=== PATIENT | female | born 1935 | race Caucasian/White ===

== ENCOUNTER 2016-10-16 07:03 | Emergency (ER) | payer MEDICARE, OTHER ==
[2016-10-16 07:21] VITALS: BP 152/75
--- NOTE | 2016-10-16 07:38 | UC ---
Hand/Wrist HPI - HPI Summary HPI Summary: 81 yo female with right wrist injury that occurred last PM getting into bed She had no preceding symptoms of MONET/dizziness/CP/palpitations or weakness No syncope or near syncope She had a fall in the bedroom one week ago as well (when she got up to go to the bathroom) Hx of Breast Ca - History Of Current Complaint Chief Complaint: UCUpperExtremity Stated Complaint: WRIST INJURY Time Seen by Provider: 10/16/16 07:09 Hx Obtained From: Patient Onset/Duration: Sudden Onset Severity Initially: Severe Severity Currently: Severe Pain Intensity: 10 Pain Scale Used: 0-10 Numeric Character Of Pain: Aching Aggravating Factor(s): Movement Alleviating: Rest, Ice Associated Signs And Symptoms: Positive: Swelling Related History: Dominant Hand Right - Allergies/Home Medications Allergies/Adverse Reactions: Allergies Allergy/AdvReac Type Severity Reaction Status Date / Time No Known Allergies Allergy Verified 10/16/16 07:14 Home Medications: Home Medications Anastrozole [Arimidex] 1 mg PO DAILY 10/16/16 [History Confirmed 10/16/16] PMH/Surg Hx/FS Hx/Imm Hx Previously Healthy: Yes Endocrine History: Dyslipidemia Cancer History: Breast Cancer - Surgical History Surgical History: Yes Surgery Procedure, Year, and Place: 1978 HYSTERECTOMY , BILATERAL [place]- [facility]OPHORECTOMY, [facility] 1986 [place] [facility] [place] [facility] [place] FROM [place]RO[place], 1965 - Family History Known Family History: Positive: Cardiac Disease - mom with AF, Other - mom breast Ca - Social History Alcohol Use: Daily Alcohol Amount: 1 PER DAY Substance Use Type: None Smoking Status (MU): Never Smoked Tobacco Have You Smoked in the Last Year: No - Immunization History Most Recent Influenza Vaccination: fall 2014 Review of Systems Constitutional: Negative Skin: Negative Eyes: Negative ENT: Negative Respiratory: Negative Cardiovascular: Negative Gastrointestinal: Negative Genitourinary: Negative Motor: Negative Neurovascular: Negative Musculoskeletal: Arthralgia Neurological: Negative Psychological: Negative All Other Systems Reviewed And Are Negative: Yes Physical Exam Triage Information Reviewed: Yes Appearance: Well-Appearing, No Pain Distress Vital Signs: Initial Vital Signs Temp 97.9 F 10/16/16 07:14 Pulse 82 10/16/16 07:14 Resp 16 10/16/16 07:14 BP 152/75 10/16/16 07:14 Pulse Ox 100 10/16/16 07:14 Vital Signs Reviewed: Yes Eyes: Positive: Conjunctiva Clear ENT: Positive: Hearing grossly normal. Negative: Nasal congestion, Nasal drainage, Trismus, Muffled/hoarse voice Neck: Positive: Supple, Nontender, No Lymphadenopathy Respiratory: Positive: Lungs clear, Normal breath sounds, No respiratory distress, No accessory muscle use Cardiovascular: Positive: RRR, No Murmur Musculoskeletal: Positive: Other: - obvious deformity right wrist, right wrist and shoulder okay Neurological: Positive: Alert Psychological Exam: Normal Skin Exam: Normal Procedures - Splinting Location: right wrist Hand-Made Type: orthoglass Splint: sugar-tong Pre-Proc Neuro Vasc Exam: normal Post-Proc Neuro Vasc Exam: normal Diagnostics - Radiology No standard instances Xray Interpretation: Positive (See Comments) Radiology Interpretation Completed By: Radiologist - TRANSVERSE, COMMINUTED, INTRA-ARTICULAR, DISPLACED, ANGULATED FRACTURE OF THE DISTAL RADIUS. - EKG Cardiac Rate: NL Cardiac Rhythm: Sinus: Normal Ectopy: PVCs ST Segment: Normal - Pt has hyperacute T waves in V5 and V6 Hand/Wrist Course/Dx - Course Course Of Treatment: I discussed vashti to the ER with the patient for cardiac work up. She has had 2 falls in past week and an abnormal EKG. I review her blood work and her K was normal. I explained that she had hyperacute T waves that could indicate that her fall was related to a heart problem. She stated that she now remembers that she tripped on her underwear. She refuses to go to the ER but wishes to follow up with her provider. She is aware that I am unable to do tests here to rule out a heart problem. - Differential Dx/Diagnosis Provider Diagnoses: 1. Displaced fracture of distal right radius (closed). 2. Fall. 3. UTI. 4. Abnormal EKG - Physician Notifications Discussed Patient Care With: Silver Berger - I read offical XR report to Dr. Berger and explained fall occurred last PM. Time Discussed With Above Provider: 09:25 Instructed by Provider To: Have Pt Call For Appt. - States he will reduce fx on . Desires sugartong splint and agressive elevation Discharge - Discharge Plan Condition: Improved Disposition: HOME Prescriptions: Cephalexin CAP* [Keflex CAP*] 500 mg PO BID #14 cap Patient Education Materials: Wrist Fracture in Adults (ED), Urinary Tract Infection in Women (ED) Referrals: Silver Berger MD [Medical Doctor] - 4 Days (call AM he wants to see on ) Simona Sosa MD [Primary Care Provider] - As Soon As Possible Additional Instructions: as discussed- I spoke with Dr. Berger and he would like to see you Tuesday to re -set your wrist splint sling elevate elevate elevate Your urine is suspicious for a UTI...a culture is pending As discussed you should see your MD about your recheck falls You EKG was not completely normal You have HYPER ACUTE T WAVES This can be due to heart problems If you develop and worrisome symptoms (chest pain/shortness of breath/weakness etc ) GO straight to the ER
--- NOTE | 2016-10-16 08:05 | RAD ---
INDICATION: Right wrist injury. TECHNIQUE: 3 views of the right wrist were obtained. FINDINGS: There is diffuse soft tissue swelling present with deformity of the wrist. The bones appear osteoporotic. There is a transverse slightly comminuted fracture of the distal radial metaphysis with extension to the distal articular margin. The distal fragment is displaced and approximately one shaft diameter posterior and demonstrates posterior angulation relative to the proximal fragment. IMPRESSION: TRANSVERSE, COMMINUTED, INTRA-ARTICULAR, DISPLACED, ANGULATED FRACTURE OF THE DISTAL RADIUS.
--- NOTE | 2016-10-18 12:11 | UC ---
Progress - Progress Note Progress Note: Received urine C&S results. Grew >100K EColi which is pansensitive. Recommend continuing Keflex prescribed at time of visit.
== END 2016-10-16 08:45 | disposition home or self-care (01) ==
LOC: UCEAST 07:03
DX: S52.571A Other intraarticular fracture of lower end of right radius, initial encounter for closed fracture (principal); W19.XXXA Unspecified fall, initial encounter; Z91.81 History of falling; Y93.89 Activity, other specified; Y92.003 Bedroom of unspecified non-institutional (private) residence as the place of occurrence of the external cause; N39.0 Urinary tract infection, site not specified; B96.20 Unspecified Escherichia coli [E. coli] as the cause of diseases classified elsewhere; E78.5 Hyperlipidemia, unspecified; Z85.3 Personal history of malignant neoplasm of breast
CPT/HCPCS: 81003; 87077; 87086; 87186; 99212; G0463